=== PATIENT | female | born 1970 | race Caucasian/White ===

== ENCOUNTER 2024-10-05 20:35 | Inpatient (IN) | payer OTHER ==
[~2024-10-05] VITALS: Ht 160 cm; Wt 85.0 kg
[2024-10-05 20:45] VITALS: BP 153/121
[2024-10-05] MEDS ORDERED: Ondansetron Hydrochloride 4 MG/2 ML VIAL IV ONE (21:05)
[2024-10-05] MEDS ORDERED: HYDROmorphONE Hydrochloride 0.5 MG/0.5 ML SYRINGE IV ONE (21:05)
[2024-10-05] MEDS ORDERED: SODIUM CHLORIDE 0.9% 1,000 ML IV ONE (21:05)
[2024-10-05 21:41] LABS: BASO # 0.1 10*3/uL (0.0-0.1); BASO % 0.7 % (0.0-1.0); EOS # 0.1 10*3/uL (0.0-0.4); EOS % 0.8 % (1.0-4.0); HEMATOCRIT 50.4 % (37.0-47.0); MEAN CELL VOLUME 92.1 fl (81.0-99.0); MEAN CORPUSCULAR HGB 30.3 pg (27.0-31.0); MEAN CORPUSCULAR HGB CONC 32.9 g/dl (33.0-37.0); MEAN PLATELET VOLUME 10.5 fl (9.6-12.3); MONO # 0.5 10*3/uL (0.1-1.0); MONO % 3.7 % (3.0-9.0); NEUT # 11.8 10*3/uL (2.3-7.9); NEUT % 81.9 % (47.0-73.0); PLATELET COUNT AUTOMATED 181 10*3/uL (130-400); RED BLOOD COUNT 5.47 10*6/uL (4.10-5.10); RED CELL DISTRI WIDTH 12.3 % (0-14.5); WHITE BLOOD COUNT 14.4 10*3/uL (4.8-10.8)
[2024-10-05 21:53] LABS: BILIRUBIN Negative (Negative); BLOOD 2+ (Negative); CLARITY Clear (Clear); COLOR Dark Yellow (Yellow); GLUCOSE Negative (Negative); KETONE Trace (Negative); LEUKO ESTERASE 1+ (Negative); NITRITE Negative (Negative); SPECIFIC GRAVITY 1.025 (1.001-1.030)
[2024-10-05 22:12] LABS: BACTERIA 1+; EPITHELIAL CELLS 16-20; MUCOUS 1+; RBC 31-40 rbc/hpf (0-2)
[2024-10-05 22:18] LABS: ALKALINE PHOSPHATASE 106 U/L (46-116); BUN 10 mg/dl (9-23); CHLORIDE 105 mmol/L (98-107); POTASSIUM 3.9 mmol/L (3.4-5.1); SGPT/ALT 30 U/L (5-49); TOTAL PROTEIN 7.7 gm/dL (6.0-8.0)
[2024-10-05] MEDS ORDERED: Piperacillin Sodium/Tazobact 50 ML IV ONE (23:00)
[2024-10-05] MEDS ORDERED: SODIUM CHLORIDE 0.9% 1,000 ML IV SCH (23:00)
[2024-10-05] MEDS ORDERED: Ondansetron Hydrochloride 4 MG/2 ML VIAL IV PRN (23:50)
[2024-10-06] MEDS ORDERED: Piperacillin Sodium/Tazobact 50 ML IV SCH
[2024-10-06] MEDS ORDERED: SODIUM CHLORIDE 0.9% 1,000 ML IV ONE (00:30)
[2024-10-06] MEDS ORDERED: CELEXA20 MG PO (02:42)
[2024-10-06] MEDS ORDERED: Synthroid,Lev150 MCG PO (02:42)
[2024-10-06] MEDS ORDERED: LOSARTAN POTAS100 MG PO (02:42)
[2024-10-06] MEDS ORDERED: PROTONIX40 MG PO (02:42)
[2024-10-06] MEDS ORDERED: TENORMIN25 MG PO (02:43)
[2024-10-06] MEDS ORDERED: LIPITOR80 MG PO (02:43)
[2024-10-06] MEDS ORDERED: VITAMIN D250 MCG PO (02:44)
[2024-10-06] MEDS ORDERED: ASPIRIN ADULT L81 M2 PO (02:44)
[2024-10-06 03:04] VITALS: BP 165/117
[2024-10-06] MEDS ORDERED: MORPHINE Sulfate 2 MG/ML SYR IV PRN (03:05)
[2024-10-06 06:44] LABS: BASO # 0.1 10*3/uL (0.0-0.1); BASO % 0.8 % (0.0-1.0); EOS # 0.2 10*3/uL (0.0-0.4); EOS % 2.2 % (1.0-4.0); HEMATOCRIT 43.4 % (37.0-47.0); MEAN CELL VOLUME 93.1 fl (81.0-99.0); MEAN CORPUSCULAR HGB 31.1 pg (27.0-31.0); MEAN CORPUSCULAR HGB CONC 33.4 g/dl (33.0-37.0); MEAN PLATELET VOLUME 9.7 fl (9.6-12.3); MONO # 0.6 10*3/uL (0.1-1.0); MONO % 5.4 % (3.0-9.0); NEUT # 6.6 10*3/uL (2.3-7.9); NEUT % 61.7 % (47.0-73.0); RED BLOOD COUNT 4.66 10*6/uL (4.10-5.10); RED CELL DISTRI WIDTH 12.7 % (0-14.5); WHITE BLOOD COUNT 10.7 10*3/uL (4.8-10.8)
[2024-10-06 06:46] LABS: PLATELET COUNT AUTOMATED 124 10*3/uL (130-400)
[2024-10-06] MEDS ORDERED: ACETAMINOPHEN 325 MG TAB PO PRN (07:50)
[2024-10-06 08:05] LABS: VITAMIN D, 25-HYDROXY 30.3 ng/mL (30-100)
[2024-10-06 08:08] VITALS: BP 141/90
[2024-10-06 08:09] LABS: BUN 9 mg/dl (9-23); CHLORIDE 112 mmol/L (98-107); CHOLESTEROL 197 mg/dL (<200); FREE T4 0.69 ng/dl (0.89-1.76); LDL CHOLESTEROL 132 mg/dL (9-159); POTASSIUM 3.5 mmol/L (3.4-5.1); TRIGLYCERIDES 148 mg/dl (<150)
[2024-10-06] MEDS ORDERED: BISACODYL 5 MG TAB PO ONE (08:40)
[2024-10-06] MEDS ORDERED: Nicotine 21 MG PATCH T SCH (10:00)
[2024-10-06] MEDS ORDERED: Losartan Potassium 100 MG TABLET PO SCH (12:20)
[2024-10-06] MEDS ORDERED: ATENOLOL 25 MG TAB PO SCH (12:20)
[2024-10-06] MEDS ORDERED: Peg Electrolyte Lavage Solut 4,000 ML BOT PO ONE (14:00)
[2024-10-06] MEDS ORDERED: Acetaminophen/Hydrocodone 5 MG/325 MG TABLET PO PRN (15:20)
[2024-10-06 16:09] VITALS: BP 148/96
[2024-10-06 19:31] VITALS: BP 154/84
[2024-10-06 21:20] VITALS: BP 172/110
[2024-10-07] VITALS: BP 132/84
[2024-10-07] MEDS ORDERED: Levothyroxine Sodium 150 MCG TAB PO SCH (06:00)
[2024-10-07 06:29] LABS: BASO # 0.1 10*3/uL (0.0-0.1); BASO % 1.1 % (0.0-1.0); EOS # 0.5 10*3/uL (0.0-0.4); HEMATOCRIT 45.2 % (37.0-47.0); MEAN CELL VOLUME 92.4 fl (81.0-99.0); MEAN CORPUSCULAR HGB 30.7 pg (27.0-31.0); MEAN CORPUSCULAR HGB CONC 33.2 g/dl (33.0-37.0); MEAN PLATELET VOLUME 9.6 fl (9.6-12.3); MONO # 0.5 10*3/uL (0.1-1.0); MONO % 4.7 % (3.0-9.0); NEUT # 5.9 10*3/uL (2.3-7.9); NEUT % 52.1 % (47.0-73.0); PLATELET COUNT AUTOMATED 157 10*3/uL (130-400); RED BLOOD COUNT 4.89 10*6/uL (4.10-5.10); RED CELL DISTRI WIDTH 12.6 % (0-14.5); WHITE BLOOD COUNT 11.4 10*3/uL (4.8-10.8)
[2024-10-07 06:39] VITALS: BP 166/96
[2024-10-07 06:48] LABS: BUN 6 mg/dl (9-23); CHLORIDE 109 mmol/L (98-107); POTASSIUM 3.5 mmol/L (3.4-5.1)
[2024-10-07] MEDS ORDERED: Lactated Ringer's Solution 1,000 ML IV ONE (07:33)
[2024-10-07 08:00] VITALS: BP 142/73
[2024-10-07 08:03] VITALS: BP 109/66
[2024-10-07 08:18] VITALS: BP 103/70
[2024-10-07 08:28] VITALS: BP 119/68
[2024-10-07] MEDS ORDERED: CITALOPRAM 20 MG TAB PO SCH (10:00)
[2024-10-07] MEDS ORDERED: ASPIRIN ENTERIC COATED 81 MG TAB PO SCH (10:00)
[2024-10-07] MEDS ORDERED: ATORVASTATIN CALCIUM 80 MG TAB PO SCH (10:00)
[2024-10-07] MEDS ORDERED: METRONIDAZOLE500 M1 PO (10:48)
[2024-10-07] MEDS ORDERED: CIPRO500 MG PO (10:48)
[2024-10-07] MEDS ORDERED: PREDNISONE50 MG PO (10:48)
[2024-10-07] MEDS ORDERED: Lidocaine Hydrochloride 2% 5 ML SDV IV ONE (19:31)
[2024-10-07] MEDS ORDERED: PROPOFOL 200 MG/20 ML VIAL IV ONE (19:31)
== END 2024-10-07 11:33 | disposition home or self-care (01) | DRG 872 ==
LOC: ED 20:35 → 5E 23:34 → EDHOLD 23:34 → 5E 23:34
PROVIDERS: Emergency Medicine; Student in an Organized Health Care Education/Training Program; ADMIT Student in an Organized Health Care Education/Training Program; ATTEND Student in an Organized Health Care Education/Training Program
PROC: 0DBH8ZX Excision of Cecum, Via Natural or Artificial Opening Endoscopic, Diagnostic (ICD-10-PCS; principal; 2024-10-07)
PROC: 0DBL8ZX Excision of Transverse Colon, Via Natural or Artificial Opening Endoscopic, Diagnostic (ICD-10-PCS; 2024-10-07)
PROC: 0DBN8ZX Excision of Sigmoid Colon, Via Natural or Artificial Opening Endoscopic, Diagnostic (ICD-10-PCS; 2024-10-07)
PROC: 0DBM8ZX Excision of Descending Colon, Via Natural or Artificial Opening Endoscopic, Diagnostic (ICD-10-PCS; 2024-10-07)
DX: A41.9 Sepsis, unspecified organism (principal); N39.0 Urinary tract infection, site not specified; K52.9 Noninfective gastroenteritis and colitis, unspecified; D75.1 Secondary polycythemia; R31.29 Other microscopic hematuria; F17.220 Nicotine dependence, chewing tobacco, uncomplicated; K57.30 Diverticulosis of large intestine without perforation or abscess without bleeding; F41.1 Generalized anxiety disorder; R73.9 Hyperglycemia, unspecified; E03.9 Hypothyroidism, unspecified; I10 Essential (primary) hypertension; K21.9 Gastro-esophageal reflux disease without esophagitis; I25.10 Atherosclerotic heart disease of native coronary artery without angina pectoris; Z95.5 Presence of coronary angioplasty implant and graft; Z88.2 Allergy status to sulfonamides; Z91.041 Radiographic dye allergy status; Z87.19 Personal history of other diseases of the digestive system; Z79.82 Long term (current) use of aspirin; Z71.6 Tobacco abuse counseling; Z79.899 Other long term (current) drug therapy

== ENCOUNTER 2025-04-06 11:34 | Emergency (ER) | payer OTHER ==
[~2025-04-06] VITALS: Ht 160 cm; Wt 86.2 kg
[~2025-04-06 11:34] MED LIST: ASPIRIN ADULT L81 M2 PO; CELEXA20 MG PO; CIPRO500 MG PO; LIPITOR80 MG PO; LOSARTAN POTAS100 MG PO; METRONIDAZOLE500 M1 PO; PREDNISONE50 MG PO; PROTONIX40 MG PO; Synthroid,Lev150 MCG PO; TENORMIN25 MG PO; VITAMIN D250 MCG PO
[2025-04-06] MEDS ORDERED: ASPIRIN, CHEWABLE 81 MG TAB PO ONE (12:40)
[2025-04-06 13:18] LABS: BASO # 0.1 10*3/uL (0.0-0.1); BASO % 0.5 % (0.0-1.0); EOS # 0.0 10*3/uL (0.0-0.4); EOS % 0.2 % (1.0-4.0); MEAN CELL VOLUME 90.7 fl (81.0-99.0); MEAN CORPUSCULAR HGB 30.8 pg (27.0-31.0); MEAN PLATELET VOLUME 9.6 fl (9.6-12.3); MONO # 0.8 10*3/uL (0.1-1.0); MONO % 5.0 % (3.0-9.0); NEUT # 13.2 10*3/uL (2.3-7.9); NEUT % 80.6 % (47.0-73.0); NUCLEATED RED BLOOD CELL 0.0 % (0.0-0.0); NUCLEATED RED BLOOD CELL 0.0 10*3/uL (0.0-0.0); PLATELET COUNT AUTOMATED 143 10*3/uL (130-400); RED CELL DISTRI WIDTH 12.8 % (0-14.5)
[2025-04-06 13:38] LABS: BUN 8 mg/dl (9-23)
[2025-04-06] MEDS ORDERED: NITROGLYCERIN 0.4 MG BOT SL ONE (13:50)
[2025-04-06] MEDS ORDERED: HEPARIN SODIUM 250 ML IV SCH (13:50)
== END 2025-04-06 16:04 | disposition short-term general hospital (02) ==
LOC: ED 11:34
PROVIDERS: Student in an Organized Health Care Education/Training Program
DX: I21.4 Non-ST elevation (NSTEMI) myocardial infarction (principal); R11.2 Nausea with vomiting, unspecified; F17.200 Nicotine dependence, unspecified, uncomplicated; Z91.041 Radiographic dye allergy status; Z88.2 Allergy status to sulfonamides; Z79.899 Other long term (current) drug therapy; Z79.82 Long term (current) use of aspirin; Z90.89 Acquired absence of other organs